=== PATIENT | female | born 1955 | race Caucasian/White ===

== ENCOUNTER 2017-06-23 11:48 | Outpatient (CLI) | payer OTHER ==
--- NOTE | 2017-06-23 13:15 | RAD ---
TWO VIEWS CHEST: HISTORY: Dyspnea. COMPARISON: 04/25/2016 FINDINGS: Atherosclerosis of the aorta. Normal cardiac silhouette. Pulmonary vessels and pulmonary hilum are normal. The costophrenic angles are clear. Mild hyperinflation, without consolidation or mass. No pneumothorax or osseous abnormalities. IMPRESSION: 1. No acute cardiopulmonary process. 2. Atherosclerosis. 3. Stable hyperinflation. POS: [facility]
== END 2017-06-23 11:49 | disposition home or self-care (01) ==
LOC: RAD 11:48
PROVIDERS: ATTEND Internal Medicine Critical Care Medicine
DX: R06.00 Dyspnea, unspecified (principal); J98.4 Other disorders of lung; I70.90 Unspecified atherosclerosis
CPT/HCPCS: 71046

== ENCOUNTER 2017-07-17 10:07 | Outpatient (CLI) | payer OTHER | END 2017-07-17 10:08 | disposition home or self-care (01) | LOC: BICMAMMO 10:07 | PROVIDERS: ATTEND Internal Medicine | DX: R92.1 Mammographic calcification found on diagnostic imaging of breast (principal) | CPT/HCPCS: G0279 ==

== ENCOUNTER 2017-10-22 09:48 | Outpatient (CLI) | payer OTHER ==
--- NOTE | 2017-10-22 10:15 | RAD ---
TWO VIEWS OF THE CHEST: COMPARISON: 06/23/17. HISTORY: Dyspnea. FINDINGS: Two views of the chest show normal sized cardiomediastinal silhouette. There is no evidence of consol idation, mass, or pleural effusion. The bones are unremarkable. IMPRESSION: No evidence of acute cardiopulmonary disease. POS: [facility]
== END 2017-10-22 09:49 | disposition home or self-care (01) ==
LOC: RAD 09:48
PROVIDERS: ATTEND Internal Medicine Critical Care Medicine
DX: R06.00 Dyspnea, unspecified (principal)
CPT/HCPCS: 71046

== ENCOUNTER 2018-01-27 08:28 | Outpatient (CLI) | payer OTHER | END 2018-01-27 08:29 | disposition home or self-care (01) | LOC: BICMAMMO 08:28 | PROVIDERS: ATTEND Internal Medicine | DX: R92.8 Other abnormal and inconclusive findings on diagnostic imaging of breast (principal); R92.1 Mammographic calcification found on diagnostic imaging of breast | CPT/HCPCS: 77066; G0279 ==

== ENCOUNTER 2019-01-31 09:35 | Outpatient (CLI) | payer BC ==
--- NOTE | 2019-01-31 10:56 | MMO ---
Bilateral MAMMO Bilat Screen [facility]. CLINICAL HISTORY: Patient is 63 years old and is seen for screening. The patient has no family history of breast cancer. The patient has no personal history of cancer. VIEWS: The views performed were: bilateral craniocaudal with tomosynthesis and bilateral mediolateral oblique with tomosynthesis. FILMS COMPARED: The present examination has been compared to prior imaging studies performed at [facility] on 01/26/2017, 07/17/2017 and 01/27/2018. This study has been interpreted with the assistance of computer-aided detection. MAMMOGRAM FINDINGS: There are scattered fibroglandular densities. There are stable benign appearing calcifications seen in both breasts. There are no suspicious masses, suspicious calcifications, or new areas of architectural distortion. IMPRESSION: THERE IS NO MAMMOGRAPHIC EVIDENCE OF MALIGNANCY. A ROUTINE FOLLOW-UP MAMMOGRAM IN 1 YEAR IS RECOMMENDED. THE RESULTS OF THIS EXAM WERE SENT TO THE PATIENT. ACR BI-RADS Category 2 - Benign finding MAMMOGRAPHY NOTE: 1. A negative mammogram report should not delay a biopsy if a dominant of clinically suspicious mass is present. 2. Approximately 10% to 15% of breast cancers are not detected by mammography. 3. Adenosis and dense breasts may obscure an underlying neoplasm. Reported by: DARI RAYMUNDO MD Electonically Signed: [id number]
== END 2019-01-31 09:36 | disposition home or self-care (01) ==
LOC: BICMAMMO 09:35
PROVIDERS: ATTEND Internal Medicine
DX: Z12.31 Encounter for screening mammogram for malignant neoplasm of breast (principal)
CPT/HCPCS: 77063; 77067

== ENCOUNTER 2019-03-14 09:12 | Outpatient (CLI) | payer BC, OTHER ==
--- NOTE | 2019-03-14 09:37 | RAD ---
Chest 2 views HISTORY: Dyspnea. COMPARISON: 10/22/2017. FINDINGS: Cardiac silhouette and pulmonary vasculature are unremarkable. Mediastinum is midline with aortic calcification. Lungs are hyperinflated with flattening of each hemidiaphragm. No confluent airspace consolidation, pneumothorax, or pleural fluid. IMPRESSION: Mild pulmonary hyperinflation. Atherosclerosis.
== END 2019-03-14 09:13 | disposition home or self-care (01) ==
LOC: RAD 09:12
PROVIDERS: ATTEND Internal Medicine Critical Care Medicine
DX: R06.00 Dyspnea, unspecified (principal); I70.0 Atherosclerosis of aorta; R91.8 Other nonspecific abnormal finding of lung field
CPT/HCPCS: 71046

== ENCOUNTER 2020-02-03 09:33 | Outpatient (CLI) | payer BC ==
--- NOTE | 2020-02-03 10:13 | MMO ---
Bilateral MAMMO Bilat Screen [facility]. CLINICAL HISTORY: Patient is 64 years old and is seen for screening. The patient has no family history of breast cancer. The patient has no personal history of cancer. VIEWS: The views performed were: bilateral craniocaudal with tomosynthesis and bilateral mediolateral oblique with tomosynthesis. FILMS COMPARED: The present examination has been compared to prior imaging studies performed at [facility] on 01/26/2017, 07/17/2017, 01/27/2018 and 01/31/2019. This study has been interpreted with the assistance of computer-aided detection. MAMMOGRAM FINDINGS: There are scattered fibroglandular densities. There are stable benign appearing calcifications seen in both breasts. There are no suspicious masses, suspicious calcifications, or new areas of architectural distortion. IMPRESSION: THERE IS NO MAMMOGRAPHIC EVIDENCE OF MALIGNANCY. A ROUTINE FOLLOW-UP MAMMOGRAM IN 1 YEAR IS RECOMMENDED. THE RESULTS OF THIS EXAM WERE SENT TO THE PATIENT. ACR BI-RADS Category 2 - Benign finding MAMMOGRAPHY NOTE: 1. A negative mammogram report should not delay a biopsy if a dominant of clinically suspicious mass is present. 2. Approximately 10% to 15% of breast cancers are not detected by mammography. 3. Adenosis and dense breasts may obscure an underlying neoplasm. Reported by: CARMEN KOAWLSKI MD Electonically Signed: [id number]
== END 2020-02-03 09:34 | disposition home or self-care (01) ==
LOC: BICMAMMO 09:33
PROVIDERS: ATTEND Internal Medicine
DX: Z12.31 Encounter for screening mammogram for malignant neoplasm of breast (principal)
CPT/HCPCS: 77063; 77067

== ENCOUNTER 2021-02-12 09:02 | Outpatient (CLI) | payer BC | END 2021-02-12 09:03 | disposition home or self-care (01) | LOC: BICMAMMO 09:02 | PROVIDERS: ATTEND Internal Medicine | DX: Z12.31 Encounter for screening mammogram for malignant neoplasm of breast (principal) | CPT/HCPCS: 77063; 77067 ==

== ENCOUNTER 2023-05-01 10:38 | Outpatient (CLI) | payer BC | END 2023-05-01 10:39 | disposition home or self-care (01) | LOC: BICMAMMO 10:38 | PROVIDERS: ATTEND Internal Medicine | DX: Z12.31 Encounter for screening mammogram for malignant neoplasm of breast (principal) | CPT/HCPCS: 77063; 77067 ==

== ENCOUNTER 2023-09-28 11:07 | Inpatient (IN) | payer BC ==
[2023-09-28 11:45] LABS: #Basophils Less than 0.03 10x3/uL (0.0-0.2); %Basophils 0.4 % (0.0-1.0); %Lymphocytes 32.1 % (21.0-51.0); %Monocytes 7.1 % (0.0-10.0); Hematocrit 36.3 % (36.0-47.0); Hemoglobin 12.2 g/dL (12.0-16.0); Mean Corpuscular HGB CONC 33.6 g/dL (32.0-36.0); Mean Corpuscular Hemoglobin 31.2 pg (27.0-31.0); Mean Corpuscular Volume 92.8 fL (78.0-98.0); Mean Platelet Volume 9.8 fL (7.4-10.4); Platelet Count 210 10x3/uL (130-400); RBC Distribution Width 13.8 % (11.5-14.5); Red Blood Cell (RBC) Count 3.91 mill/uL (4.20-5.40)
[2023-09-28 12:03] LABS: ALT (SGPT) 21 U/L (8-55); AST (SGOT) 19 U/L (5-34); Albumin 4.4 g/dL (3.4-4.8); Alkaline Phosphatase 132 U/L (40-110); Anion Gap 19 mmol/L (10-20); BUN (Urea Nitrogen) 103 mg/dL (9.8-20.1); Bilirubin, Total 0.3 mg/dL (0.2-1.2); Calc. Creatinine Clearance 0 mL/min (70-130); Calcium 9.8 mg/dL (7.8-10.44); Carbon Dioxide 11 mmol/L (23-31); Chloride 112 mmol/L (98-107); Estimated GFR 14; Globulin 2.2 g/dL (2.4-3.5); Glucose 115 mg/dL (80-115); Lipase 156 U/L (8-78); Potassium 4.9 mmol/L (3.5-5.1); Protein, Total 6.6 g/dL (5.8-8.1); Sodium 137 mmol/L (136-145)
[2023-09-28 12:53] LABS: Troponin I 0.052 ng/mL (< 0.028)
[2023-09-28] MEDS ORDERED: Aspirin Chewable 81 MG TAB ONE (13:40)
[2023-09-28] MEDS ORDERED: Senokot S 8.6-50 MG TAB PO PRN (14:25)
[2023-09-28] MEDS ORDERED: Heparin 5,000 UNITS/ML VIAL ONE (16:39)
[2023-09-28] MEDS: Sodium Chloride 0.9% 1,000 ML IV SCH (17:23)
[2023-09-28] MEDS: Heparin 5,000 UNITS/ML VIAL SC SCH (17:24)
[2023-09-28 17:55] LABS: Influenza A by NAA Not Detected (NotDetected); Influenza B by NAA Not Detected (NotDetected); SARS-CoV-2 NAA Rapid Test Not Detected (NotDetected)
[2023-09-28 20:39] VITALS: BMI 23.3
[2023-09-28] MEDS: Sodium Bicarbonate Tab 325 MG TAB PO SCH (22:37)
[2023-09-29 02:20] LABS: Bacteria/HPF 3+ HPF (None Seen); Bilirubin Negative (Negative); Blood, Urine 2+ (Negative); Clarity Turbid (Clear); Glucose, Urine (Dipstick) Normal (Negative); Ketone, Urine Negative (Negative); Leukocyte 500 Leu/uL (Negative); Nitrite Negative (Negative); Protein, Urine (Dipstick) 10 mg/dL (Neg-Trace); Squamous Epithelial 0-3 HPF (0-3); Urobilinogen Normal mg/dL (Less than 2); WBC/HPF Greater than 50 HPF (0-3)
[2023-09-29 05:36] LABS: ALT (SGPT) 18 U/L (8-55); AST (SGOT) 24 U/L (5-34); Albumin 3.5 g/dL (3.4-4.8); Alkaline Phosphatase 104 U/L (40-110); Anion Gap 17 mmol/L (10-20); BUN (Urea Nitrogen) 90 mg/dL (9.8-20.1); Bilirubin, Total 0.2 mg/dL (0.2-1.2); Calc. Creatinine Clearance 23 mL/min (70-130); Calcium 8.5 mg/dL (7.8-10.44); Carbon Dioxide 9 mmol/L (23-31); Chloride 122 mmol/L (98-107); Estimated GFR 22; Globulin 1.9 g/dL (2.4-3.5); Glucose 93 mg/dL (80-115); Potassium 5.2 mmol/L (3.5-5.1); Protein, Total 5.4 g/dL (5.8-8.1); Sodium 143 mmol/L (136-145)
[2023-09-29] MEDS: Dextrose 5% in Water 1,000 ML IV SCH (06:13)
[2023-09-29] MEDS: Sodium Bicarb 50 mEq/50 ML VIAL IVP SCH (06:13)
[2023-09-29] MEDS ORDERED: Aspirin 81 mg Enteric Coated Tablet PO SCH (09:00)
[2023-09-29] MEDS: Aspirin Chewable 81 MG TAB PO SCH (09:41)
[2023-09-29] MEDS: Venlafaxine HCl XR 75 MG CAP PO SCH (09:41)
[2023-09-29] MEDS: cefTRIAXone\\ROCEPHIN 1 GM in Sodium Chloride 0.9% 100 ML IVPB SCH (09:41)
[2023-09-29] MEDS: Sodium Bicarbonate 150 MEQ in Dextrose 5% in Water 1,000 ML IV SCH (09:42)
[2023-09-29 10:36] LABS: Anion Gap 15 mmol/L (10-20); BUN (Urea Nitrogen) 83 mg/dL (9.8-20.1); Calc. Creatinine Clearance 26 mL/min (70-130); Calcium 8.5 mg/dL (7.8-10.44); Carbon Dioxide 13 mmol/L (23-31); Chloride 116 mmol/L (98-107); Estimated GFR 27; Glucose 103 mg/dL (80-115); Potassium 4.2 mmol/L (3.5-5.1); Sodium 140 mmol/L (136-145)
[2023-09-29] MEDS: Atorvastatin Calcium 10 MG TAB PO SCH (20:32)
[2023-09-30 05:14] LABS: #Basophils Less than 0.03 10x3/uL (0.0-0.2); %Basophils 0.3 % (0.0-1.0); %Lymphocytes 35.8 % (21.0-51.0); %Monocytes 7.3 % (0.0-10.0); %Neutrophils 52.3 % (42.0-75.0); Hematocrit 27.1 % (36.0-47.0); Hemoglobin 9.4 g/dL (12.0-16.0); Mean Corpuscular HGB CONC 34.7 g/dL (32.0-36.0); Mean Corpuscular Hemoglobin 30.9 pg (27.0-31.0); Mean Corpuscular Volume 89.1 fL (78.0-98.0); Mean Platelet Volume 9.8 fL (7.4-10.4); Platelet Count 142 10x3/uL (130-400); RBC Distribution Width 13.3 % (11.5-14.5); Red Blood Cell (RBC) Count 3.04 mill/uL (4.20-5.40)
[2023-09-30 05:43] LABS: Anion Gap 15 mmol/L (10-20); BUN (Urea Nitrogen) 62 mg/dL (9.8-20.1); Calc. Creatinine Clearance 40 mL/min (70-130); Calcium 8.2 mg/dL (7.8-10.44); Carbon Dioxide 24 mmol/L (23-31); Chloride 106 mmol/L (98-107); Estimated GFR 44; Glucose 129 mg/dL (80-115); Potassium 3.1 mmol/L (3.5-5.1); Sodium 142 mmol/L (136-145)
[2023-09-30] MEDS: NS 0.9% w/ 40 MEQ KCL 1,000 ML IV SCH (09:26)
[2023-09-30] MEDS ORDERED: Acetaminophen 325 MG TAB PO PRN (09:29)
[2023-09-30] MEDS: Potassium Chloride 20 MEQ TAB PO SCH (10:50)
[2023-09-30] MEDS: Mometasone 200 MCG/Formoterol 5 MCG 120 PUFF INHALER INH SCH (19:37)
[2023-09-30] MEDS ORDERED: Ondansetron PF 4 MG/2 ML Vial IVP PRN (19:46)
[2023-09-30] MEDS: Ondansetron ODT 4 MG TAB PO PRN (21:18)
[2023-10-01 05:09] LABS: #Basophils Less than 0.03 10x3/uL (0.0-0.2); %Basophils 0.5 % (0.0-1.0); %Eosinophils 4.5 % (0.0-10.0); %Lymphocytes 34.7 % (21.0-51.0); %Monocytes 8.4 % (0.0-10.0); %Neutrophils 51.9 % (42.0-75.0); Hematocrit 28.3 % (36.0-47.0); Hemoglobin 9.7 g/dL (12.0-16.0); Mean Corpuscular HGB CONC 34.3 g/dL (32.0-36.0); Mean Corpuscular Hemoglobin 32.6 pg (27.0-31.0); Mean Platelet Volume 9.6 fL (7.4-10.4); Platelet Count 139 10x3/uL (130-400); RBC Distribution Width 13.3 % (11.5-14.5); Red Blood Cell (RBC) Count 2.98 mill/uL (4.20-5.40)
[2023-10-01 05:28] LABS: Anion Gap 12 mmol/L (10-20); BUN (Urea Nitrogen) 41 mg/dL (9.8-20.1); Calc. Creatinine Clearance 49 mL/min (70-130); Calcium 8.5 mg/dL (7.8-10.44); Carbon Dioxide 25 mmol/L (23-31); Chloride 109 mmol/L (98-107); Estimated GFR 56; Glucose 93 mg/dL (80-115); Potassium 4.5 mmol/L (3.5-5.1); Sodium 141 mmol/L (136-145)
[2023-10-01 08:38] VITALS: BP 145/70; TEMP 98.3
[2023-10-01] MEDS: Amlodipine 5 MG TAB PO SCH (11:32)
[2023-10-01] MEDS: Lisinopril 20 MG TAB PO SCH (11:32)
== END 2023-10-01 13:53 | disposition home or self-care (01) | DRG 683 ==
LOC: ERS 11:07 → ERHOLD 14:31 → 2NO 19:33 → MSONC 09-29 14:19
PROVIDERS: ADMIT Family Medicine; ATTEND Internal Medicine
DX: N17.9 Acute kidney failure, unspecified (principal); E87.20 Acidosis, unspecified; N39.0 Urinary tract infection, site not specified; E78.5 Hyperlipidemia, unspecified; F41.9 Anxiety disorder, unspecified; I25.10 Atherosclerotic heart disease of native coronary artery without angina pectoris; F32.A Depression, unspecified; I10 Essential (primary) hypertension; Z88.2 Allergy status to sulfonamides; Z79.82 Long term (current) use of aspirin
CPT/HCPCS: 36415; 70450; 71045; 74176; 80048; 80053; 81001; 82550; 83690; 84443; 84484; 85025; 87077; 87086; 87186; 93005; J0696; J1644; J3480; J3490; J7050; J7070; Q0162

== ENCOUNTER 2024-11-16 16:50 | Inpatient (IN) | payer BC ==
[2024-11-16 17:12] LABS: #Basophils 0.03 10x3/uL (0.0-0.2); #Eosinophils 0.38 10x3/uL (0.0-0.7); #Monocytes 0.44 10x3/uL (0.11-0.59); #Neutrophils 2.66 10x3/uL (1.40-6.50); %Basophils 0.6 % (0.0-1.0); %Eosinophils 7.3 % (0.0-10.0); %Lymphocytes 32.7 % (21.0-51.0); %Monocytes 8.4 % (0.0-10.0); %Neutrophils 50.8 % (42.0-75.0); Hematocrit 32.3 % (36.0-47.0); Hemoglobin 10.5 g/dL (12.0-16.0); Mean Corpuscular Hemoglobin 30.9 pg (27.0-31.0); Mean Corpuscular Volume 95.0 fL (78.0-98.0); Platelet Count 156 10x3/uL (130-400); Red Blood Cell (RBC) Count 3.40 mill/uL (4.20-5.40); White Blood Cell (WBC) Count 5.23 10x3/uL (4.8-10.8)
[2024-11-16 17:33] LABS: ALT (SGPT) 51 U/L (Less than 34); AST (SGOT) 47 U/L (11-34); Albumin 4.2 g/dL (3.1-4.5); Alkaline Phosphatase 112 U/L (40-110); Anion Gap 14 mmol/L (10-20); BUN (Urea Nitrogen) 54 mg/dL (9.8-20.1); Bilirubin, Total 0.2 mg/dL (0.3-1.2); Calc. Creatinine Clearance 0 mL/min (70-130); Calcium 8.7 mg/dL (7.8-10.44); Carbon Dioxide 15 mmol/L (23-31); Chloride 115 mmol/L (98-107); Globulin 1.7 g/dL (2.4-3.5); Glucose 90 mg/dL (80-115); Potassium 6.3 mmol/L (3.5-5.1); Sodium 138 mmol/L (136-145)
[2024-11-16 18:05] LABS: Bacteria/HPF 1+ HPF (None Seen); CAUTI Indications for Culture Pelvic or flank pain; Glucose, Urine (Dipstick) Normal (Negative); Leukocyte 250 Leu/uL (Negative); Protein, Urine (Dipstick) Negative (Neg-Trace); RBC/HPF 0-3 HPF (0-3); Specific Gravity, Urine 1.018 (1.002-1.036)
[2024-11-16 18:06] LABS: Urine Culture Reflex No No
[2024-11-16 18:28] LABS: Actual Bicarbonate (HCO3v) 16.8 mEq/L (22-28); Base Excess -10.0 mEq/L (-2.0 to +3.0); Calcium, Ionized (venous) 1.19 mmol/L (1.16-1.32); Chloride (VBG) 112 mmol/L (98-106); Hematocrit-VBG 34 % (36.0-47.0); Hemoglobin (Hb) 11.6 g/dL (11.7-16.1); Potassium (VBG) 5.97 mmol/L (3.70-5.30); Sodium 137 mmol/L (133-146)
[2024-11-16] MEDS ORDERED: CALCIUM GLUC 1 GM/NS 50 ML IV Bag ONE (18:35)
[2024-11-16] MEDS ORDERED: Albuterol 2.5 MG (3 mL) NEB ONE (18:38)
[2024-11-16] MEDS ORDERED: Dextrose 50% Abboject 50 ML SYRINGE ONE (18:54)
[2024-11-16] MEDS ORDERED: Ondansetron PF 4 MG/2 ML Vial IVP PRN (19:42)
[2024-11-16] MEDS ORDERED: Sodium Bicarbonate 150 MEQ in Dextrose 5% in Water 850 ML IV ONE (20:30)
[2024-11-16 22:51] VITALS: BMI 25.4
[2024-11-16 23:13] LABS: Anion Gap 13 mmol/L (10-20); BUN (Urea Nitrogen) 50 mg/dL (9.8-20.1); Calc. Creatinine Clearance 38 mL/min (70-130); Calcium 8.7 mg/dL (7.8-10.44); Carbon Dioxide 20 mmol/L (23-31); Chloride 115 mmol/L (98-107); Glucose 128 mg/dL (80-115); Potassium 5.7 mmol/L (3.5-5.1); Sodium 142 mmol/L (136-145)
[2024-11-16] MEDS: cefTRIAXone\\ROCEPHIN 1 GM in Sodium Chloride 0.9% 100 ML IVPB SCH (23:45)
[2024-11-16] MEDS: Heparin 5,000 UNITS/ML VIAL SC SCH (23:46)
[2024-11-17 04:43] LABS: #Basophils Less than 0.03 10x3/uL (0.0-0.2); #Eosinophils 0.31 10x3/uL (0.0-0.7); #Monocytes 0.32 10x3/uL (0.11-0.59); #Neutrophils 1.33 10x3/uL (1.40-6.50); %Basophils 0.5 % (0.0-1.0); %Eosinophils 8.4 % (0.0-10.0); %Lymphocytes 46.2 % (21.0-51.0); %Monocytes 8.6 % (0.0-10.0); %Neutrophils 36.0 % (42.0-75.0); Hematocrit 26.7 % (36.0-47.0); Hemoglobin 8.9 g/dL (12.0-16.0); Mean Corpuscular Hemoglobin 31.4 pg (27.0-31.0); Mean Corpuscular Volume 94.3 fL (78.0-98.0); Platelet Count 121 10x3/uL (130-400); Red Blood Cell (RBC) Count 2.83 mill/uL (4.20-5.40); White Blood Cell (WBC) Count 3.70 10x3/uL (4.8-10.8)
[2024-11-17 05:16] LABS: ALT (SGPT) 37 U/L (Less than 34); AST (SGOT) 34 U/L (11-34); Albumin 3.1 g/dL (3.1-4.5); Alkaline Phosphatase 86 U/L (40-110); Anion Gap 15 mmol/L (10-20); BUN (Urea Nitrogen) 44 mg/dL (9.8-20.1); Bilirubin, Total 0.1 mg/dL (0.3-1.2); Calc. Creatinine Clearance 44 mL/min (70-130); Calcium 8.1 mg/dL (7.8-10.44); Carbon Dioxide 21 mmol/L (23-31); Chloride 113 mmol/L (98-107); Globulin 1.5 g/dL (2.4-3.5); Glucose 113 mg/dL (80-115); Magnesium 2.0 mg/dL (1.6-2.6); Potassium 4.8 mmol/L (3.5-5.1); Sodium 144 mmol/L (136-145)
[2024-11-17] MEDS: Multivit, Therapeutic 1 TAB PO SCH (08:39)
[2024-11-17] MEDS: Aspirin 81 mg Enteric Coated Tablet PO SCH (08:40)
[2024-11-17] MEDS: Cyanocobalamin (Vitamin B-12) 1,000 MCG TAB PO SCH (08:40)
[2024-11-17] MEDS: Mometasone 200 MCG/Formoterol 5 MCG 120 PUFF INHALER INH SCH (18:49)
[2024-11-17 20:04] VITALS: BMI 25.4
[2024-11-17] MEDS: Melatonin 3 MG TAB PO SCH (20:32)
[2024-11-17] MEDS: Cholecalciferol 1,000 UNITS (25 MCG) TAB PO SCH (20:32)
[2024-11-18 04:50] LABS: #Basophils Less than 0.03 10x3/uL (0.0-0.2); #Eosinophils 0.41 10x3/uL (0.0-0.7); #Monocytes 0.29 10x3/uL (0.11-0.59); #Neutrophils 1.45 10x3/uL (1.40-6.50); %Basophils 0.5 % (0.0-1.0); %Eosinophils 11.2 % (0.0-10.0); %Lymphocytes 40.4 % (21.0-51.0); %Monocytes 7.9 % (0.0-10.0); %Neutrophils 39.7 % (42.0-75.0); Hematocrit 29.0 % (36.0-47.0); Hemoglobin 9.3 g/dL (12.0-16.0); Mean Corpuscular Hemoglobin 30.9 pg (27.0-31.0); Mean Corpuscular Volume 96.3 fL (78.0-98.0); Platelet Count 123 10x3/uL (130-400); Red Blood Cell (RBC) Count 3.01 mill/uL (4.20-5.40); White Blood Cell (WBC) Count 3.66 10x3/uL (4.8-10.8)
[2024-11-18 05:15] LABS: ALT (SGPT) 33 U/L (Less than 34); AST (SGOT) 28 U/L (11-34); Albumin 3.1 g/dL (3.1-4.5); Alkaline Phosphatase 80 U/L (40-110); Anion Gap 10 mmol/L (10-20); BUN (Urea Nitrogen) 24 mg/dL (9.8-20.1); Bilirubin, Total 0.2 mg/dL (0.3-1.2); Calc. Creatinine Clearance 54 mL/min (70-130); Calcium 7.9 mg/dL (7.8-10.44); Carbon Dioxide 33 mmol/L (23-31); Chloride 104 mmol/L (98-107); Globulin 1.3 g/dL (2.4-3.5); Glucose 119 mg/dL (80-115); Magnesium 1.7 mg/dL (1.6-2.6); Potassium 4.0 mmol/L (3.5-5.1); Sodium 143 mmol/L (136-145)
[2024-11-18] MEDS: Acetaminophen 325 MG TAB PO PRN (09:43)
[2024-11-19 04:45] LABS: #Basophils Less than 0.03 10x3/uL (0.0-0.2); #Eosinophils 0.42 10x3/uL (0.0-0.7); #Monocytes 0.34 10x3/uL (0.11-0.59); #Neutrophils 1.23 10x3/uL (1.40-6.50); %Basophils 0.3 % (0.0-1.0); %Eosinophils 11.8 % (0.0-10.0); %Lymphocytes 43.4 % (21.0-51.0); %Monocytes 9.6 % (0.0-10.0); %Neutrophils 34.6 % (42.0-75.0); Hematocrit 30.1 % (36.0-47.0); Hemoglobin 9.8 g/dL (12.0-16.0); Mean Corpuscular Hemoglobin 31.2 pg (27.0-31.0); Mean Corpuscular Volume 95.9 fL (78.0-98.0); Platelet Count 123 10x3/uL (130-400); Red Blood Cell (RBC) Count 3.14 mill/uL (4.20-5.40); White Blood Cell (WBC) Count 3.55 10x3/uL (4.8-10.8)
[2024-11-19 05:02] LABS: ALT (SGPT) 33 U/L (Less than 34); AST (SGOT) 30 U/L (11-34); Albumin 3.1 g/dL (3.1-4.5); Alkaline Phosphatase 82 U/L (40-110); Anion Gap 13 mmol/L (10-20); BUN (Urea Nitrogen) 21 mg/dL (9.8-20.1); Bilirubin, Total 0.2 mg/dL (0.3-1.2); Calc. Creatinine Clearance 54 mL/min (70-130); Calcium 8.3 mg/dL (7.8-10.44); Carbon Dioxide 29 mmol/L (23-31); Chloride 105 mmol/L (98-107); Globulin 1.4 g/dL (2.4-3.5); Glucose 90 mg/dL (80-115); Magnesium 1.7 mg/dL (1.6-2.6); Potassium 4.3 mmol/L (3.5-5.1); Sodium 143 mmol/L (136-145)
[2024-11-19 05:09] VITALS: TEMP 98.2
[2024-11-19 07:57] VITALS: BP 141/65
== END 2024-11-19 10:45 | disposition home or self-care (01) | DRG 683 ==
LOC: ERS 16:50 → 2NO 19:42
PROVIDERS: ADMIT Internal Medicine; ATTEND Emergency Medicine
DX: N17.9 Acute kidney failure, unspecified (principal); E87.20 Acidosis, unspecified; N39.0 Urinary tract infection, site not specified; I50.32 Chronic diastolic (congestive) heart failure; I11.0 Hypertensive heart disease with heart failure; E78.5 Hyperlipidemia, unspecified; I25.10 Atherosclerotic heart disease of native coronary artery without angina pectoris; E03.9 Hypothyroidism, unspecified; E87.5 Hyperkalemia; M54.50 Low back pain, unspecified; G89.29 Other chronic pain; R29.6 Repeated falls; Z79.899 Other long term (current) drug therapy; Z79.890 Hormone replacement therapy; Z88.8 Allergy status to other drugs, medicaments and biological substances
CPT/HCPCS: 36415; 36416; 74176; 80053; 81001; 82805; 83735; 84100; 85025; 87077; 87086; 87186; 93005; 94640; 96374; 96375; J0613; J0696; J1644; J1815; J7070; J7611; J7999